=== PATIENT | female | born 1960 | race Caucasian/White ===

== ENCOUNTER 2020-12-03 14:27 | Emergency (ER) | payer OTHER ==
--- NOTE | 2020-12-03 16:05 | RAD REPORT ---
EXAM DESCRIPTION: RAD - Chest Pa And Lat (2 Views) - 12/03/2020 3:58 pm CLINICAL HISTORY: SOB Chest pain. COMPARISON: No comparisons FINDINGS: Moderate to significant bilateral pulmonary opacities are present likely representing unde rlying COVID-19. The heart is normal in size. No displaced fractures.
--- NOTE | 2020-12-03 21:08 | EDPHYS ---
Physician Documentation [facility] Name: Mariana Mcgarry Age: 59 yrs Sex: Female : 1960 Arrival Date: 12/03/2020 Time: 14:29 Bed Waiting Private MD: ED Physician John Mcclendon HPI: 12/03 15:41 This 59 yrs old Female presents to ER via Wheelchair with complaints of Pain cp All Over, Cough - covid+, Fever, Diarrhea. 15:41 The patient presents to the emergency department with diarrhea, that is continuous. cp 15:41 Onset: The symptoms/episode began/occurred 6 day(s) ago. Possible causes: recently cp tested positive for COVID-19. The patient or guardian reports cough, that is constant, shortness of breath. Associated signs and symptoms: Pertinent positives: body aches, generalized pain, Pertinent negatives: abdominal pain, fever, active vomiting, chest pain. Historical: - Allergies: 15:35 PENICILLINS; kg - Home Meds: 15:35 None [Active]; kg - PMHx: 15:35 Hypertensive disorder; kg - PSHx: 15:35 None; kg - Immunization history:: Adult Immunizations not up to date, Client reports having NOT received the Covid vaccine. - Social history:: Smoking status: Patient denies any tobacco usage or history of. ROS: 15:45 Constitutional: Positive for body aches, poor PO intake, Negative for fever. cp 15:45 Eyes: Negative for injury, pain, redness, and discharge. cp 15:45 Neck: Negative for pain with movement, pain at rest, stiffness. 15:45 Cardiovascular: Negative for chest pain, edema. 15:45 Respiratory: Positive for cough, "sounds productive", shortness of breath, Negative for wheezing. 15:45 Abdomen/GI: Positive for nausea, diarrhea, Negative for abdominal pain, constipation, black/tarry stool, rectal bleeding, active vomiting. 15:45 : Negative for urinary symptoms. 15:45 Neuro: Negative for altered mental status, syncope. 15:45 All other systems are negative. Exam: 15:50 Constitutional: The patient appears in no acute distress, alert, awake, cp non-diaphoretic, non-toxic, well developed, well nourished. 15:50 Head/Face: Normocephalic, atraumatic. cp 15:50 Eyes: Periorbital structures: appear normal, Conjunctiva: normal, no exudate, no injection, Sclera: no appreciated abnormality, Lids and lashes: appear normal, bilaterally. 15:50 ENT: External ear(s): are unremarkable, Nose: is normal, Mouth: Lips: dry, Oral mucosa: moist, Posterior pharynx: Airway: no evidence of obstruction, patent. 15:50 Neck: ROM/movement: is normal, is supple, no meningismus, no nuchal rigidity. 15:50 Chest/axilla: Inspection: normal, Palpation: is normal, no crepitus, no tenderness. 15:50 Respiratory: the patient does not display signs of respiratory distress, Respirations: labored breathing, is not present, intercostal retractions, are absent, shallow respirations, that is mild, Breath sounds: decreased breath sounds, that are mild, diffuse, wheezing: is not appreciated. 15:50 Abdomen/GI: Inspection: abdomen appears normal, Palpation: abdomen is soft and non-tender, in all quadrants. 15:50 Neuro: Orientation: to person, place \\T\\ time. Mentation: is normal, Motor: moves all fours, strength is normal. Vital Signs: 15:32 Weight 102.06 kg (R); Height 5 ft. 3 in. (160.02 cm); Pain 5/10; kg 15:32 Body Mass Index 39.86 (102.06 kg, 160.02 cm) kg MDM: 12/03 15:39 Order name: XRAY Chest Pa And Lat (2 Views); Complete Time: 18:17 kg 12/03 15:41 Order name: EKG; Complete Time: 15:42 12/03 15:41 Order name: Cardiac monitoring 12/03 15:41 Order name: EKG - Nurse/Tech 12/03 15:41 Order name: IV Saline Lock 12/03 15:41 Order name: Labs collected and sent 12/03 15:41 Order name: O2 Per Protocol 12/03 15:41 Order name: O2 Sat Monitoring 12/03 15:41 Order name: Urine Dipstick-Ancillary (obtain specimen) 12/03 15:41 Order name: Urine Test (obtain specimen) cp Administered Medications: No medications were administered Disposition: 12/04 18:12 Co-signature as Attending Physician, John Mcclendon MD I agree with the assessment and kdr plan of care. Disposition Summary: 12/03/20 21:07 Eloped Disposition: before being seen by provider bb Reason: wait time bb Signatures: Dispatcher [employer] John Dixon MD MD kdr Ballard, Brenda, RN RN bb Nacho Valdez PA PA cp Graham, Kristen RN RN kg
--- NOTE | 2020-12-03 21:08 | ER ---
Nurse's Notes [facility] Name: Mariana Mcgarry Age: 59 yrs Sex: Female : 1960 Arrival Date: 12/03/2020 Time: 14:29 Bed Waiting Private MD: Diagnosis: Presentation: 12/03 15:32 Chief complaint: Patient states: Fever, cough, diarrhea, chills, aching x 6. Covid + kg sunday. Coronavirus screen: Client denies travel out of the [place] in the last 14 days. At this time, unable to obtain information related to travel outside the [place] Client presents with at least one sign or symptom that may indicate coronavirus-19. Standard/surgical mask placed on the client. Provider contacted for isolation considerations. Client reports previous positive COVID test result. Date of collection: November 27, 2020. Ebola Screen: Patient negative for fever greater than or equal to 101.5 degrees Fahrenheit, and additional compatible Ebola Virus Disease symptoms Patient denies exposure to infectious person. Patient denies travel to an Ebola-affected area in the 21 days before illness onset. Initial Sepsis Screen: Does the patient meet any 2 criteria? No. Patient's initial sepsis screen is negative. Does the patient have a suspected source of infection? Yes: Productive cough/pneumonia. Risk Assessment: Do you want to hurt yourself or someone else? Patient reports no desire to harm self or others. Onset of symptoms was November 24, 2020. 15:32 Method Of Arrival: Wheelchair kg 15:32 Acuity: KATERINE 3 kg Triage Assessment: 15:35 General: Appears in no apparent distress. Behavior is calm, cooperative, appropriate kg for age, quiet. Pain: Complains of pain in Generalized Pain currently is 5 out of 10 on a pain scale. at worst was 8 out of 10 on a pain scale. level that patient reports is acceptable is 3 out of 10 on a pain scale. Quality of pain is described as aching. GI: Reports diarrhea. Historical: - Allergies: 15:35 PENICILLINS; kg - Home Meds: 15:35 None [Active]; kg - PMHx: 15:35 Hypertensive disorder; kg - PSHx: 15:35 None; kg - Immunization history:: Adult Immunizations not up to date, Client reports having NOT received the Covid vaccine. - Social history:: Smoking status: Patient denies any tobacco usage or history of. Screenin:38 Abuse screen: Denies threats or abuse. Denies injuries from another. Nutritional kg screening: No deficits noted. Tuberculosis screening: No symptoms or risk factors identified. Fall Risk None identified. Vital Signs: 15:32 Weight 102.06 kg (R); Height 5 ft. 3 in. (160.02 cm); Pain 5/10; kg 15:32 Body Mass Index 39.86 (102.06 kg, 160.02 cm) kg ED Course: 14:29 Patient arrived in ED. as 15:35 Triage completed. kg 15:38 Patient has correct armband on for positive identification. kg 15:39 Arm band placed on. kg 15:40 Nacho Valdez PA is PHCP. cp 15:40 John Mcclendon MD is Attending Physician. cp 15:58 XRAY Chest Pa And Lat (2 Views) In Process Unspecified. EDMS 21:07 Patient's name was called from ER lobby. No response. Unable to locate patient. Will bb disposition as left without being seen by a provider. Administered Medications: No medications were administered Outcome: 21:07 Patient left the ED. bb Signatures: Dispatcher [employer] EDMS Margarita Young Brenda, RN RN bb Nacho Valdez PA PA cp Graham, Kristen, RN RN kg Corrections: (The following items were deleted from the chart) 15:32 15:31 Chief complaint: kg kg
== END 2020-12-03 21:07 | disposition left against medical advice (07) ==
LOC: ER 14:27
DX: Z53.21 Procedure and treatment not carried out due to patient leaving prior to being seen by health care provider (principal)
CPT/HCPCS: 71046; 99282